=== PATIENT | male | born 1995 | race Caucasian/White ===

== ENCOUNTER 2016-10-24 11:50 | Emergency (ER) | payer OTHER ==
[~2016-10-24] VITALS: Ht 177.8 cm; Wt 59.0 kg
[2016-10-24 12:00] VITALS: BP 138/82
== END 2016-10-24 20:39 | disposition left against medical advice (07) ==
LOC: EDUNIT# 11:50 → ER 11:50
DX: R10.9 Unspecified abdominal pain (principal); R11.2 Nausea with vomiting, unspecified; Z53.21 Procedure and treatment not carried out due to patient leaving prior to being seen by health care provider